=== PATIENT | male | born 1975 ===

== ENCOUNTER → 2022-06-14 | Outpatient (CLI) | payer MEDICAID ==
[~2022-06-14] VITALS: Ht 167.6 cm; Wt 80.3 kg
[~2022-06-14] MED LIST: ADENOSINE 67 MG in GIVE UN-DILUTED 0 ML IV ONE
== END | disposition home or self-care (01) ==
LOC: Rad HDHVI 13:30
PROVIDERS: ATTEND Internal Medicine Cardiovascular Disease
DX: I35.8 Other nonrheumatic aortic valve disorders (principal); I10 Essential (primary) hypertension; E78.5 Hyperlipidemia, unspecified; E11.9 Type 2 diabetes mellitus without complications
CPT/HCPCS: 78452; 93017; 93306; 96374; A9500